=== PATIENT | female | born 1980 | race African-American/Black ===

== ENCOUNTER 2018-11-11 07:58 | Emergency (ER) | payer OTHER ==
[~2018-11-11] VITALS: Ht 172.7 cm; Wt 124.7 kg
[~2018-11-11 07:58] MED LIST: FLEXERIL PO; NOHOMEMEDICATIONS; NORCO 5-325 TA1 EACH PO; XANAX 0.25 MG0.25 MG PO
[2018-11-11 08:37] LABS: ABSOLUTE NEUTROPHILS 11.2 thou/uL (1.4-8.2); BASOPHILS 0.5 % (0.0-2.0); EOSINOPHILS 1.7 % (0.0-3.0); HEMATOCRIT 39.3 % (37.0-47.0); HEMOGLOBIN 12.9 gm/dL (12.0-15.0); LYMPHOCYTES 7.6 % (24.0-44.0); MCH 27.5 pg (26.0-34.0); MCV 83.4 fL (80.0-100.0); MONOCYTES 5.8 % (1.0-8.0); PLATELET COUNT 300 thou/uL (150-400); POLYS 84.4 % (36.0-66.0); RBC 4.71 mil/uL (4.20-5.00); RDW 13.6 % (10.5-14.5); WBC 13.2 thou/uL (4.0-11.0)
[2018-11-11 08:40] LABS: CREATININE 0.8 mg/dL (0.6-1.0); POTASSIUM 4.2 mmol/L (3.5-5.1)
[2018-11-11 08:42] LABS: URINE BILIRUBIN NEGATIVE (Negative); URINE BLOOD 1+ (Negative); URINE CLARITY CLEAR; URINE COLOR YELLOW; URINE GLUCOSE-RANDOM* NEGATIVE (Negative); URINE KETONES NEGATIVE (Negative); URINE LEUKOCYTES NEGATIVE (Negative); URINE NITRITE NEGATIVE (Negative); URINE PROTEIN (DIPSTICK) 1+ (Negative); URINE SPECIFIC GRAVITY 1.025 (1.005-1.035); URINE UROBILINOGEN 0.2 E.U./dl (0.2-1.0)
[2018-11-11] MEDS ORDERED: ZOLOFT25 MG PO (08:43)
[2018-11-11] MEDS ORDERED: XANAX1 MG PO (08:43)
[2018-11-11] MEDS ORDERED: AMBIEN 5 MG TABL5 M1 PO (08:44)
[2018-11-11 08:46] LABS: ALBUMIN 3.2 g/dL (3.4-5.0); TOTAL BILIRUBIN 0.3 mg/dL (<0.1-1.0); TOTAL PROTEIN 8.5 g/dL (6.4-8.2)
[2018-11-11 08:53] LABS: BACTERIA 1-9 Few /HPF (None Seen); CASTS None Seen /LPF (None Seen); CRYSTALS None Seen /LPF (None Seen); SQUAMOUS >10 Many /LPF (0-3); URINE RBC 0-2 Rare /HPF (0-2); URINE WBC 0-5 Rare /HPF (0-5)
[2018-11-11] MEDS ORDERED: ZOFRAN ODT4 MG PO (09:44)
[2018-11-11] MEDS ORDERED: NORCO 5-325 TA1 EACH PO (09:57)
[2018-11-11 10:44] VITALS: BP 120/85
== END 2018-11-11 10:44 | disposition home or self-care (01) ==
LOC: ER 07:58
PROVIDERS: Emergency Medicine
DX: A09 Infectious gastroenteritis and colitis, unspecified (principal); F41.9 Anxiety disorder, unspecified; Z87.891 Personal history of nicotine dependence; Z88.0 Allergy status to penicillin

== ENCOUNTER 2019-08-21 01:05 | Emergency (ER) | payer OTHER ==
[~2019-08-21] VITALS: Ht 172.7 cm; Wt 119.8 kg
[~2019-08-21 01:05] MED LIST changes: +AMBIEN 5 MG TABL5 M1 PO; +XANAX1 MG PO; +ZOFRAN ODT4 MG PO; +ZOLOFT25 MG PO
[2019-08-21 02:40] LABS: ABSOLUTE NEUTROPHILS 6.6 thou/uL (1.4-8.2); BASOPHILS 0.4 % (0.0-2.0); EOSINOPHILS 9.1 % (0.0-3.0); HEMATOCRIT 37.2 % (37.0-47.0); LYMPHOCYTES 29.2 % (24.0-44.0); MCH 27.4 pg (26.0-34.0); MCHC 32.2 g/dL (28.0-37.0); MCV 85.1 fL (80.0-100.0); MONOCYTES 6.8 % (1.0-8.0); PLATELET COUNT 295 thou/uL (150-400); POLYS 54.5 % (36.0-66.0); RBC 4.38 mil/uL (4.20-5.00); RDW 13.4 % (10.5-14.5); WBC 12.1 thou/uL (4.0-11.0)
[2019-08-21 02:45] LABS: ANION GAP 9 mmol/L (7-16); BUN 11 mg/dL (7-18); CHLORIDE 101 mmol/L (98-107); CO2 28 mmol/L (21-32); CREATININE 0.8 mg/dL (0.6-1.0); GLUCOSE 125 mg/dL (74-106); POTASSIUM 3.7 mmol/L (3.5-5.1); SODIUM 138 mmol/L (136-145)
[2019-08-21 02:51] LABS: DIRECT BILIRUBIN < 0.1 mg/dL (<0.1-0.3); LIPASE 71 U/L (73-393); SGOT 12 U/L (15-37); SGPT 14 U/L (30-65); TOTAL BILIRUBIN 0.2 mg/dL (<0.1-1.0); TOTAL PROTEIN 7.4 g/dL (6.4-8.2)
[2019-08-21 03:22] LABS: URINE BILIRUBIN NEGATIVE (Negative); URINE BLOOD NEGATIVE (Negative); URINE CLARITY CLEAR; URINE COLOR YELLOW; URINE GLUCOSE-RANDOM* NEGATIVE (Negative); URINE KETONES NEGATIVE (Negative); URINE LEUKOCYTES-REFLEX NEGATIVE (Negative); URINE NITRITE-REFLEX NEGATIVE (Negative); URINE PROTEIN (DIPSTICK) NEGATIVE (Negative); URINE SPECIFIC GRAVITY 1.025 (1.005-1.035)
[2019-08-21] MEDS ORDERED: BENTYL 20 MG TA20 M1 PO (04:50)
[2019-08-21 05:45] VITALS: BP 146/73
== END 2019-08-21 05:57 | disposition home or self-care (01) ==
LOC: ER 01:05
PROVIDERS: Emergency Medicine
DX: R10.84 Generalized abdominal pain (principal); F41.9 Anxiety disorder, unspecified; Z87.891 Personal history of nicotine dependence; Z88.0 Allergy status to penicillin

== ENCOUNTER 2019-09-24 12:04 | Emergency (ER) | payer OTHER ==
[~2019-09-24] VITALS: Ht 172.7 cm; Wt 119.8 kg
[~2019-09-24 12:04] MED LIST changes: +BENTYL 20 MG TA20 M1 PO
[2019-09-24] MEDS ORDERED: VICODIN ES 7.51 EACH PO (12:23)
[2019-09-24] MEDS ORDERED: IBUPROFEN 600600 M1 PO (14:49)
[2019-09-24 14:53] VITALS: BP 128/72
== END 2019-09-24 14:53 | disposition home or self-care (01) ==
LOC: ER 12:04
DX: S43.401A Unspecified sprain of right shoulder joint, initial encounter (principal); F41.9 Anxiety disorder, unspecified; Z87.891 Personal history of nicotine dependence; Z88.0 Allergy status to penicillin; W01.0XXA Fall on same level from slipping, tripping and stumbling without subsequent striking against object, initial encounter; Y93.89 Activity, other specified; Y92.89 Other specified places as the place of occurrence of the external cause; Y99.8 Other external cause status

== ENCOUNTER → 2019-11-02 | Outpatient (CLI) | payer OTHER ==
[~2019-11-02] MED LIST changes: +IBUPROFEN 600600 M1 PO; +VICODIN ES 7.51 EACH PO
== END ==
LOC: MRI 10-28 12:22 → EDSTATUS 10-28 19:14 → MRI 13:42
DX: M75.101 Unspecified rotator cuff tear or rupture of right shoulder, not specified as traumatic (principal); G89.29 Other chronic pain